=== PATIENT | female | born 2000 | race Two or more races ===

== ENCOUNTER 2020-08-06 15:20 | Emergency (ER) | payer MEDICAID, OTHER ==
[~2020-08-06] VITALS: Ht 152.4 cm; Wt 47.6 kg
[2020-08-06 17:10] VITALS: BP 120/77
== END 2020-08-06 17:37 | disposition home or self-care (01) ==
LOC: ER 15:20
DX: S00.83XA Contusion of other part of head, initial encounter (principal); Z88.1 Allergy status to other antibiotic agents; Z3A.01 Less than 8 weeks gestation of pregnancy; V43.62XA Car passenger injured in collision with other type car in traffic accident, initial encounter; Y93.89 Activity, other specified; Y92.89 Other specified places as the place of occurrence of the external cause; Y99.8 Other external cause status
CPT/HCPCS: 81025